=== PATIENT | male | born 1960 | race Caucasian/White ===

== ENCOUNTER 2017-09-18 21:01 | Emergency (ER) | payer OTHER ==
[~2017-09-18] VITALS: Ht 177.8 cm; Wt 86.2 kg
[~2017-09-18 21:01] MED LIST: NORCO 5-325 TA1 EACH PO
[2017-09-18 21:41] LABS: HEMATOCRIT 36.2 % (42.0-52.0); HEMOGLOBIN 12.3 gm/dL (14.0-18.0); MCH 33.1 pg (26.0-34.0); MCHC 33.9 g/dL (28.0-37.0); MCV 97.5 fL (80.0-100.0); PLATELET COUNT 65 thou/uL (150-400); RBC 3.71 mil/uL (4.50-6.00); RDW 14.3 % (10.5-14.5); WBC 4.1 thou/uL (4.0-11.0)
[2017-09-18 21:48] LABS: CALCIUM 9.2 mg/dL (8.5-10.1); CREATININE 0.9 mg/dL (0.7-1.3); POTASSIUM 3.8 mmol/L (3.5-5.1)
[2017-09-18 21:54] LABS: ALBUMIN 3.4 g/dL (3.4-5.0); TOTAL BILIRUBIN 0.7 mg/dL (<0.1-1.0); TOTAL PROTEIN 7.1 g/dL (6.4-8.2)
[2017-09-18 22:16] LABS: ABSOLUTE NEUTROPHILS 1.7 thou/uL (1.4-8.2)
[2017-09-18 22:58] VITALS: BP 126/75
[2017-09-18] MEDS ORDERED: LASIX 20 MG TAB20 MG PO (23:15)
[2017-09-18] MEDS ORDERED: KLOR-CON 1010 MEQ PO (23:15)
== END 2017-09-18 23:50 | disposition home or self-care (01) ==
LOC: ER 21:01
PROVIDERS: Nurse Practitioner Family
DX: R60.0 Localized edema (principal); R94.5 Abnormal results of liver function studies